=== PATIENT | female | born 1955 | race Caucasian/White ===

== ENCOUNTER 2021-05-28 11:57 | Outpatient (CLI) | payer MEDICARE, OTHER | END 2021-05-28 11:58 | disposition home or self-care (01) | LOC: CSHCT 11:57 | PROVIDERS: ATTEND Internal Medicine | DX: K86.2 Cyst of pancreas (principal) | CPT/HCPCS: 74170; 82565 ==

== ENCOUNTER 2022-05-12 11:49 | Outpatient (CLI) | payer MEDICARE, OTHER | END 2022-05-12 11:50 | disposition home or self-care (01) | LOC: CSHMAMMO 11:49 | PROVIDERS: ATTEND Internal Medicine | DX: Z12.31 Encounter for screening mammogram for malignant neoplasm of breast (principal) | CPT/HCPCS: 77063; 77067 ==

== ENCOUNTER 2022-06-01 05:40 | Day surgery (SDC) | payer MEDICARE, OTHER ==
[2022-05-31 12:24] VITALS: BMI 30.1
[2022-06-01] MEDS ORDERED: PROPOFOL 40 ML ONE (08:08)
[2022-06-01] MEDS ORDERED: Fentanyl 100 MCG/2 ML VIAL ONE (08:08)
== END 2022-06-01 08:55 | disposition home or self-care (01) ==
LOC: CSHSDC 05:40
PROVIDERS: ATTEND Internal Medicine Gastroenterology
PROC: 0DB78ZX Excision of Stomach, Pylorus, Via Natural or Artificial Opening Endoscopic, Diagnostic (ICD-10-PCS; principal; 2022-06-01)
DX: K25.9 Gastric ulcer, unspecified as acute or chronic, without hemorrhage or perforation (principal); K86.2 Cyst of pancreas; K21.9 Gastro-esophageal reflux disease without esophagitis; E78.5 Hyperlipidemia, unspecified; M19.90 Unspecified osteoarthritis, unspecified site; Z86.010 Personal history of colon polyps; Z79.899 Other long term (current) drug therapy; Z90.710 Acquired absence of both cervix and uterus; Z98.890 Other specified postprocedural states
CPT/HCPCS: 88305; 88342; J2704; J3010

== ENCOUNTER 2022-09-08 05:46 | Day surgery (SDC) | payer MEDICARE, OTHER ==
[2022-09-07 10:06] VITALS: BMI 30.4
[2022-09-08] MEDS ORDERED: PROPOFOL 40 ML ONE (07:09)
[2022-09-08] MEDS ORDERED: Lidocaine 2% MPF 10 ML AMP (For Epidural Use) ONE (07:09)
== END 2022-09-08 09:34 | disposition home or self-care (01) ==
LOC: CSHSDC 05:46
PROVIDERS: ATTEND Internal Medicine Gastroenterology
PROC: 0DD78ZX Extraction of Stomach, Pylorus, Via Natural or Artificial Opening Endoscopic, Diagnostic (ICD-10-PCS; principal; 2022-09-08)
DX: K25.9 Gastric ulcer, unspecified as acute or chronic, without hemorrhage or perforation (principal); K31.9 Disease of stomach and duodenum, unspecified; E78.5 Hyperlipidemia, unspecified; K21.9 Gastro-esophageal reflux disease without esophagitis; M19.90 Unspecified osteoarthritis, unspecified site; I10 Essential (primary) hypertension; E66.9 Obesity, unspecified; Z68.30 Body mass index [BMI] 30.0-30.9, adult; Z90.710 Acquired absence of both cervix and uterus; Z86.010 Personal history of colon polyps; Z98.890 Other specified postprocedural states; Z79.899 Other long term (current) drug therapy
CPT/HCPCS: 88305; 88342; J2704

== ENCOUNTER 2023-07-04 14:39 | Outpatient (CLI) | payer MEDICARE, OTHER | END 2023-07-04 14:40 | disposition home or self-care (01) | LOC: CSHMAMMO 14:39 | PROVIDERS: ATTEND Internal Medicine | DX: Z12.31 Encounter for screening mammogram for malignant neoplasm of breast (principal) | CPT/HCPCS: 77063; 77067 ==

== ENCOUNTER 2024-08-01 08:39 | Outpatient (CLI) | payer MEDICARE, OTHER | END 2024-08-01 08:40 | disposition home or self-care (01) | LOC: CSHMAMMO 08:39 | PROVIDERS: ATTEND Internal Medicine | DX: Z12.31 Encounter for screening mammogram for malignant neoplasm of breast (principal) | CPT/HCPCS: 77063; 77067 ==

== ENCOUNTER 2025-08-14 09:07 | Outpatient (CLI) | payer MEDICARE, OTHER | END 2025-08-14 09:08 | disposition home or self-care (01) | LOC: CSHMAMMO 09:07 | PROVIDERS: ATTEND Internal Medicine | DX: Z12.31 Encounter for screening mammogram for malignant neoplasm of breast (principal) | CPT/HCPCS: 77063; 77067 ==